=== PATIENT | female | born 1980 | race Caucasian/White ===

== ENCOUNTER → 2024-02-17 12:14 | Outpatient (REF) | payer OTHER, SELFPAY | LOC: HWWDC 12:14 | PROVIDERS: ATTENDING PHYSICIAN Obstetrics & Gynecology Gynecology; FAMILY PHYSICIAN Nurse Practitioner | DX: Z12.31 Encounter for screening mammogram for malignant neoplasm of breast (principal) | CPT/HCPCS: 77063; 77067 ==

== ENCOUNTER → 2024-09-25 10:08 | Outpatient (REF) | payer OTHER, SELFPAY | LOC: HWRAD 10:08 | DX: M25.511 Pain in right shoulder (principal) | CPT/HCPCS: 73030 ==

== ENCOUNTER → 2025-05-25 09:43 | Outpatient (REF) | payer OTHER, SELFPAY | LOC: HWWDC 09:43 | PROVIDERS: ATTENDING PHYSICIAN Obstetrics & Gynecology Gynecology | DX: Z12.31 Encounter for screening mammogram for malignant neoplasm of breast (principal) | CPT/HCPCS: 77063; 77067 ==